=== PATIENT | female | born 1995 | race African-American/Black ===

== ENCOUNTER 2017-07-03 17:58 | Emergency (ER) | payer MEDICAID, OTHER ==
[~2017-07-03] VITALS: Ht 170.2 cm; Wt 59.0 kg
[2017-07-03 17:59] VITALS: BP 128/82; PULSE 89; RESP 18; TEMP 98.7; O2SAT 100
--- NOTE | 2017-07-03 18:24 | PD ---
HPI Chief Complaint: Account Manager Employee Benefits Problem/Complaint Time Seen by Provider: 18:22 Travel History International Travel<30 days: No Contact w/Intl Traveler<30days: No Traveled to known affect area: No History of Present Illness HPI 21-year-old female presents to the emergency department for evaluation of possible STD. Patient states that she believes her boyfriend has an STD and she would like to be tested. Patient states she has had no vaginal discharge. She is on her menstrual cycle. She does report lower abdominal pain started approximately 2 days ago. No fever or chills. No nausea or vomiting. States that she cannot be . She has no other symptoms to report. Of note, the boyfriend is at the bedside. He requests that I look up his record for his results and inform them both. He did test positive for both gonorrhea and chlamydia. PFSH Past Medical History ADHD: No Cancer: No Cardiovascular Problems: No Developmental Delay: No Diabetes: No Diminished Hearing: No Psychiatric: Yes (DEPRESSION) Immunizations Current: Yes Migraines: No Seizures: No Thyroid Disease: No Ulcer: No ?: Unknown Past Surgical History Other Surgery: No Social History Alcohol Use: No Tobacco Use: No Substance Use: No Allergies-Medications (Allergen,Severity, Reaction): Coded Allergies: No Known Allergies (Verified , 07/03/17) Reported Meds & Prescriptions Reported Meds & Active Scripts Active Review of Systems Except as stated in HPI: all other systems reviewed are Neg Physical Exam Narrative GENERAL: Well-nourished female patient, ambulatory no acute distress SKIN: Focused skin assessment warm/dry. HEAD: Atraumatic. Normocephalic. EYES: Pupils equal and round. No scleral icterus. No injection or drainage. ENT: No nasal bleeding or discharge. Mucous membranes pink and moist. NECK: Trachea midline. No JVD. CARDIOVASCULAR: Regular rate and rhythm. No murmur appreciated. RESPIRATORY: No accessory muscle use. Clear to auscultation. Breath sounds equal bilaterally. GASTROINTESTINAL: Abdomen soft, nondistended. Slight suprapubic tenderness to palpation. No guarding. No rebound tenderness.. Hepatic and splenic margins not palpable. GENITOURINARY: Normal external genitalia without lesions or erythema. Vaginal vault brown vaginal drainage, consistent with menses. Cervical os was closed brown-red drainage. There is a yellow discharge noted as well.. No cervical motion tenderness. Uterus nontender and nonenlarged. Bilateral adnexa nontender without masses. MUSCULOSKELETAL: No obvious deformities. No clubbing. No cyanosis. No edema. NEUROLOGICAL: Awake and alert. No obvious cranial nerve deficits. Motor grossly within normal limits. Normal speech. PSYCHIATRIC: Appropriate mood and affect; insight and judgment normal. Data Data Last Documented VS Vital Signs Date Time Temp Pulse Resp B/P (MAP) Pulse Ox O2 Delivery O2 Flow Rate FiO2 07/03/17 17:59 98.7 89 18 128/82 (97) 100 Room Air Orders Orders Urinalysis - C+S If Indicated (07/03/17 18:03) Ed Urine Pregnancytest Poc (07/03/17 18:03) Wet Prep Profile (07/03/17 18:23) Gc And Chlamydia Pcr (07/03/17 18:23) Ceftriaxone Inj (Rocephin Inj) (07/03/17 18:30) Lidocaine 1% Inj (50 Ml) (Xylocaine 1% I (07/03/17 18:30) Azithromycin (Zithromax) (07/03/17 18:30) Urine Culture (07/03/17 18:05) Labs Laboratory Tests Test 07/03/17 18:05 07/03/17 18:35 Urine Color YELLOW Urine Turbidity HAZY Urine pH 6.0 Urine Specific [place] 1.030 Urine Protein TRACE mg/dL Urine Glucose (UA) NEG mg/dL Urine Ketones NEG mg/dL Urine Occult Blood TRACE Urine Nitrite POS Urine Bilirubin NEG Urine Urobilinogen LESS THAN 2.0 MG/DL Urine Leukocyte Esterase TRACE Urine RBC 1 /hpf Urine WBC 5 /hpf Urine Squamous Epithelial Cells <1 /hpf Urine Bacteria FEW /hpf Urine Mucus MANY /lpf Microscopic Urinalysis Comment CULTURE INDICATED Clue Cells (Wet Prep) NONE SEEN Vaginal Trichomonas (Wet Prep) NONE SEEN Vaginal Yeast (Wet Prep) NONE SEEN MDM Medical Decision Making Medical Screen Exam Complete: Yes Emergency Medical Condition: Yes Medical Record Reviewed: Yes Differential Diagnosis BV versus STD versus cervicitis versus PID versus UTI Narrative Course 21 year-old female presents to emergency department for evaluation and treatment of possible STD. Patient has been exposed to both gonorrhea and chlamydia. She has mild suprapubic tenderness with palpation. She overall appears well. Patient will be treated empirically. Laboratory Tests Test 07/03/17 18:05 07/03/17 18:35 Urine Color YELLOW Urine Turbidity HAZY Urine pH 6.0 Urine Specific [place] 1.030 Urine Protein TRACE mg/dL Urine Glucose (UA) NEG mg/dL Urine Ketones NEG mg/dL Urine Occult Blood TRACE Urine Nitrite POS Urine Bilirubin NEG Urine Urobilinogen LESS THAN 2.0 MG/DL Urine Leukocyte Esterase TRACE Urine RBC 1 /hpf Urine WBC 5 /hpf Urine Squamous Epithelial Cells <1 /hpf Urine Bacteria FEW /hpf Urine Mucus MANY /lpf Microscopic Urinalysis Comment CULTURE INDICATED Clue Cells (Wet Prep) NONE SEEN Vaginal Trichomonas (Wet Prep) NONE SEEN Vaginal Yeast (Wet Prep) NONE SEEN She is counseled on safe sex practices. Advised to follow-up with gynecology [facility] department. She agrees to return immediately with any acute worsening of symptoms. Diagnosis Primary Impression: Exposure to STD Additional Impression: Abdominal pain Qualified Codes: R10.30 - Lower abdominal pain, unspecified Referrals: Oil Derrick Operator Primary Care Physician [facility] Dept. Patient Instructions: General Instructions, Safe Sex (ED) Additional Instructions: Utilize condoms prophylaxis Follow-up with food analyst or the [facility] for test of cure Return immediately to the emergency department with any acute worsening symptoms Med/Other Pt SpecificInfo: No Change to Meds Disposition: 01 DISCHARGE HOME Condition: Stable Shirley Obregon Jul 03, 2017 18:24
[2017-07-03] MEDS ORDERED: LIDOCAINE HCL 1% 50 ML VIAL XX ONE (18:30)
[2017-07-03] MEDS ORDERED: AZITHROMYCIN 250 MG TAB PO ONE (18:30)
[2017-07-03] MEDS ORDERED: cefTRIAXone 250 MG VIAL IM ONE (18:30)
[2017-07-03 18:31] LABS: BACTERIA, URINE FEW /hpf; BLOOD, URINE TRACE (NEG); COMMENT (UR) CULTURE INDICATED; CULTURE IF INDICATED CULTURE INDICATED; GLUCOSE,URINE NEG (NEG); KETONE, URINE NEG (NEG); MUCUS URINE MANY /lpf (OCC); NITRITE,URINE POS (NEG); SQUAMOUS EPITHELIAL CELL URINE <1 /hpf (0-5); URINE COLOR YELLOW (YELLW/STRAW)
[2017-07-03 23:10] LABS: CHLAMYDIA PCR NOT DETECTED (NOT DETECT); NEISSERIA PCR DETECTED (NOT DETECT)
== END 2017-07-03 21:03 | disposition home or self-care (01) ==
LOC: NEPD 17:58
DX: R10.30 Lower abdominal pain, unspecified (principal); B96.20 Unspecified Escherichia coli [E. coli] as the cause of diseases classified elsewhere; F32.9 Major depressive disorder, single episode, unspecified; Z20.2 Contact with and (suspected) exposure to infections with a predominantly sexual mode of transmission
CPT/HCPCS: 81001; 84703; 87077; 87086; 87186; 87210; 87491; 87591; 96372; 99284; J0696

== ENCOUNTER 2017-12-02 20:23 | Emergency (ER) | payer MEDICAID, OTHER ==
[2017-12-02 20:46] VITALS: BP 132/62; PULSE 96; RESP 18; TEMP 98.1; O2SAT 100
--- NOTE | 2017-12-03 12:11 | PD ---
HPI Chief Complaint: Related Problem Time Seen by Provider: 20:46 Travel History International Travel<30 days: No Contact w/Intl Traveler<30days: No Traveled to known affect area: No History of Present Illness HPI 22-year-old female who states she is but uncertain of how far along, presents emergency department for evaluation of an episode of feeling lightheaded today. She did not pass out. She denies any chest pain or tightness. No difficulty breathing. No vaginal bleeding or discharge. No abdominal cramping. Patient has not sought care. Her last menstrual cycle was in July 2017. [facility] Past Medical History ADHD: No Cancer: No Cardiovascular Problems: No Developmental Delay: No Diabetes: No Diminished Hearing: No Psychiatric: Yes (DEPRESSION) Immunizations Current: Yes Migraines: No Seizures: No Thyroid Disease: No Ulcer: No ?: Past Surgical History Other Surgery: No Social History Alcohol Use: No Tobacco Use: No Substance Use: Yes (marijuana) Allergies-Medications (Allergen,Severity, Reaction): Coded Allergies: No Known Allergies (Verified , 07/03/17) Reported Meds & Prescriptions Reported Meds & Active Scripts Active Review of Systems Except as stated in HPI: all other systems reviewed are Neg Physical Exam Narrative This is a well-nourished female patient. She appears nontoxic. She has even respirations. Her heart rate is slightly elevated. Slightly rotund abdomen. Patient moves all extremities. She speaks clearly Data Data Last Documented VS Vital Signs Date Time Temp Pulse Resp B/P (MAP) Pulse Ox O2 Delivery O2 Flow Rate FiO2 12/02/17 20:46 98.1 96 18 132/62 (85) 100 Orders Orders Ed Urine Pregnancytest Poc (12/02/17 20:48) [facility] Medical Decision Making Medical Screen Exam Complete: Yes Emergency Medical Condition: Yes Medical Record Reviewed: Yes Differential Diagnosis versus electrode abnormality versus dehydration versus orthostatic hypotension Narrative Course 22-year-old female presents to the emergency department for evaluation. Patient appears nontoxic. Vital signs are stable. Workup is initiated in triage. Prior to room placement, patient chooses to leave AMA. AMA: The risks of leaving against medical advice without further evaluation treatment were discussed with the patient. These risks include cardiac dysfunction, cardiac dysrhythmia, possible heart attack, possible stroke or . The patient indicated understanding of these risks and appeared to have the capacity to make this decision. Diagnosis Primary Impression: Near syncope Patient Instructions: General Instructions Departure Forms: Tests/Procedures Disposition: 07 AGAINST MEDICAL ADVICE Condition: Stable Shirley Obregon Dec 03, 2017 12:11
== END 2017-12-03 02:04 | disposition left against medical advice (07) ==
LOC: NED 20:23
DX: O26.90 Pregnancy related conditions, unspecified, unspecified trimester (principal); R55 Syncope and collapse
CPT/HCPCS: 99281

== ENCOUNTER 2018-02-03 09:12 | Emergency (ER) | payer OTHER ==
[2018-02-03] MEDS: ACETAMINOPHEN 325 MG TAB PO (10:21)
== END 2018-02-03 10:51 | disposition home or self-care (01) ==
LOC: NEPK 09:12
DX: O26.892 Other specified pregnancy related conditions, second trimester (principal); Z3A.00 Weeks of gestation of pregnancy not specified; M23.91 Unspecified internal derangement of right knee
CPT/HCPCS: 73560; 99283